=== PATIENT | male | born 1950 | race Caucasian/White ===

== ENCOUNTER 2016-11-11 07:25 | Day surgery (SDC) | payer MEDICARE ==
[~2016-11-11] VITALS: Ht 182.9 cm; Wt 72.6 kg
--- NOTE | 2016-11-11 09:28 | NUR ---
11/11/16 0928 Opal Plascencia 0982-PATIENT ARRIVED TO PACU ON 5L NC O2 SAT 99% PATIENT NONAROUSABLE ABDOMEN SOFT. SR.
--- NOTE | 2016-12-01 10:36 | OR ---
[facility] [address], [place] [address] Signed DATE OF SERVICE: 11/11/2016 PREOPERATIVE DIAGNOSIS: History of multiple polyps, 2010. Rectal bleeding, May and June 2016. Alcohol dependency. POSTOPERATIVE DIAGNOSES: Diverticulosis of sigmoid and left colon. Multiple polyps (total of 6), including flat polyps of cecum, complex polyps of right colon and hepatic flexure. PROCEDURE: Total colonoscopy with hot snare polypectomy x3, with mucosal lift technique, including Endomark tattoo dye. Cold morcellation polypectomy x3 (prolonged, complicated, difficult). ANESTHESIA: Propofol infusion, Agnieszka Sevilla CRNA. INDICATION: This is a 66-year-old, white man, who is a patient of Dr. Muro and is a chronic alcoholic. He was seen by me in 2010, at which time he had 7 hyperplastic polyps excised and 1 adenoma. He has a family history of colon cancer in his father. He did not follow up in planned time interval for colonoscopy, but is here at this point having episodes of rectal bleeding back in May, which have largely resolved. He is admitted to undergo colonoscopy for surveillance as well as for his rectal bleeding, mindful of his underlying alcoholism. The risks of bleeding, infection, and perforation related to colonoscopy was reviewed in detail with him. He understands and wishes to proceed. FINDINGS: The prep was good. Complete colonoscopy was undertaken to the cecum. Within the cecum was a flat polyp that was excised to an excellent effect using mucosal lift technique and Endomark tattoo dye. Two smaller polyps were noted in the ascending colon, excised with cold morcellation relation technique. Another polyp of the ascending colon and hepatic flexure, which were along a fold required Endomark tattoo lift technique for excision as well. Another polyp, hypervascular but probably adenomatous was noted in the sigmoid, which was excised with similar technique. Procedure was prolonged, complicated, and difficult on the basis of number of polyps and mucosal lift technique required to safely excise them. DESCRIPTION OF PROCEDURE: The patient was brought to the endoscopy suite and placed in lateral decubitus position. He was given intravenous sedation to the point of deep sedation by the buckle sewer using propofol infusion. Digital rectal examination was Electronically Signed By: ROHINI BUTLER MD 12/01/16 1036 PATIENT NAME: CONCETTA BETH OPERATIVE REPORT DATE OF : 50 PHYSICIAN: ROHINI BUTLER MD REPORT #: [id number] REPORT IS CONFIDENTIAL AND NOT TO BE RELEASED WITHOUT AUTHORIZATION [facility] [address], [place] [address] Signed normal. An Olympus video colonoscope was passed in the rectum and manipulated throughout the colon. Numerous diverticula were seen in the sigmoid and left colon. Scope was advanced to the cecum, where a subtle flat polyp was noted. Irrigation and narrow band imaging better defined the polyp. It would be considered a "flat" polyp. Using an Endomark tattoo technique with mucosal lift and a sclerotherapy needle, the lesion was elevated from the mucosa of the cecum. Several passes with the hot snare were used to excise it fully. Photographs were taken. Bits and pieces of the polyp were passed for pathology. The scope was withdrawn, and another mid ascending colon polyp not completely flat, but definitely elongated of an unusual configuration was noted. This was excised in a similar technique. This lesion was too large to excise and pull through the scope, with morcellation technique and was left in situ. The scope was withdrawn to the hepatic flexure, where another similar polyp was noted. It was similarly excised with mucosal lift technique . Both polyps were then placed in an EndoCatch (Fountain net) to withdraw them fully. The scope was then fully withdrawn and the polyp material offloaded. The scope was reinserted, and examination of the polypectomy site showed them to be hemostatic without sign of perforation. Two small polyps of the right colon were noted, and these were excised with cold morcellation technique. Further withdrawal of the scope was undertaken and another polyp was noted in the sigmoid . It was marked and excised with hot snare polypectomy technique as well. Retroflexed view in the rectum was normal. Scope was removed, and the patient was taken to the recovery room in good condition. CONCLUDING DIAGNOSIS: Multiple polyps, most of them probably adenomatous. PLAN: Repeat colonoscopy in 1 year, sooner if clinically indicated. He will return to the ongoing care of Dr. Muro in the meantime. MD ROSAURA Spears/Donna /[id number] Electronically Signed By: ROHINI BUTLER MD 12/01/16 1036 PATIENT NAME: CONCETTA BETH OPERATIVE REPORT DATE OF : 50 PHYSICIAN: ROHINI BUTLER MD REPORT #: [id number] REPORT IS CONFIDENTIAL AND NOT TO BE RELEASED WITHOUT AUTHORIZATION
== END 2016-11-11 10:00 | disposition home or self-care (01) ==
LOC: OPS 07:25 → DS 07:25 → OPS 08:30 → DS 13:00 → OPS 13:00
PROVIDERS: Surgery
PROC: 0DBH8ZX Excision of Cecum, Via Natural or Artificial Opening Endoscopic, Diagnostic (ICD-10-PCS; 2016-11-11)
PROC: 0DBF8ZX Excision of Right Large Intestine, Via Natural or Artificial Opening Endoscopic, Diagnostic (ICD-10-PCS; 2016-11-11)
PROC: 0DBN8ZX Excision of Sigmoid Colon, Via Natural or Artificial Opening Endoscopic, Diagnostic (ICD-10-PCS; 2016-11-11)
PROC: 3E0H8GC Introduction of Other Therapeutic Substance into Lower GI, Via Natural or Artificial Opening Endoscopic (ICD-10-PCS; 2016-11-11)
PROC: 0DBL8ZX Excision of Transverse Colon, Via Natural or Artificial Opening Endoscopic, Diagnostic (ICD-10-PCS; principal; 2016-11-11 08:30)
DX: D12.3 Benign neoplasm of transverse colon (principal); D12.0 Benign neoplasm of cecum; K63.5 Polyp of colon; K57.30 Diverticulosis of large intestine without perforation or abscess without bleeding; D12.5 Benign neoplasm of sigmoid colon; F10.20 Alcohol dependence, uncomplicated; F17.210 Nicotine dependence, cigarettes, uncomplicated; J44.9 Chronic obstructive pulmonary disease, unspecified; Z85.89 Personal history of malignant neoplasm of other organs and systems; K21.9 Gastro-esophageal reflux disease without esophagitis; Z98.890 Other specified postprocedural states
CPT/HCPCS: 00810; J2704; J7120

== ENCOUNTER 2017-11-14 06:00 | Day surgery (SDC) | payer MEDICARE ==
[~2017-11-14] VITALS: Ht 182.9 cm; Wt 72.6 kg
--- NOTE | 2017-11-14 08:38 | NUR ---
11/14/17 0838 Maxim Nuñez RESPONDS TO VOICE AT 0837. DENIES [place] OR PAIN. FALLS ASLEEP EASILY.
--- NOTE | 2017-11-14 18:23 | EKG ---
[facility] [address] [facility] [place] [address] Signed Normal sinus rhythm Normal ECG No previous ECGs available Confirmed by HARINI CARTER MD ([id number]) on 11/14/2017 6:22:57 PM Electronically Signed By: HARINI CARTER MD 11/14/17 1823 PATIENT NAME: CONCETTA BETH Electrocardiogram DATE OF : 50 PHYSICIAN: HARINI CARTER MD REPORT #: [id number] REPORT IS CONFIDENTIAL AND NOT TO BE RELEASED WITHOUT AUTHORIZATION
--- NOTE | 2017-11-15 09:34 | OR ---
[facility] [address] [place], [place] [address] Signed DATE OF OPERATION: 11/14/2017 SURGEON: Rohini Butler MD PREOPERATIVE DIAGNOSIS: History of multiple polyps in 2018. POSTOPERATIVE DIAGNOSES: 1. Polyps x8. 2. Sigmoid diverticulosis. PROCEDURE: Total colonoscopy to cecum with hot snare polypectomy x4 and cold morcellation polypectomy x4. ANESTHESIA: Intravenous sedation with propofol infusion. ANESTHESIOLOGIST: Santy Gabriel CRNA. INDICATION: This 67-year-old white man is a patient Dr. Muro and has chronic alcoholism in durable remission at this time. In October of 2017, he underwent colonoscopy, was found to have multiple polyps. They were adenomatous. He does have constipation from time to time, but no rectal bleeding. Although, he is in remission from significant alcoholism, he does admit to smoking cannabis on a routine basis. He was admitted at this time to undergo surveillance colonoscopy, understand the risks of bleeding, infection, perforation, and so on. FINDINGS: The prep was excellent. Complete colonoscopy was undertaken to the cecum. He had multiple polyps once again. One in particular was a flat polyp of the sigmoid, which was excised with mucosal lift technique. The other polyps were excised with combination of snare polypectomy or cold morcellation polypectomy technique. Numerous diverticula were seen in the sigmoid. All the polyps essentially were on the left side. None in the right or transverse. DESCRIPTION OF PROCEDURE: The patient was brought to the endoscopy suite and placed in lateral decubitus position, Electronically Signed By: ROHINI BUTLER MD 11/15/17 0934 PATIENT NAME: CONCETTA BETH OPERATIVE REPORT DATE OF : 50 REPORT #: [id number] PHYSICIAN: ROHINI BUTLER MD PCP: GEOFF MURO MD REPORT IS CONFIDENTIAL AND NOT TO BE RELEASED WITHOUT AUTHORIZATION [facility] [address] [place], [place] [address] Signed given intravenous sedation by the corporate relations director with propofol infusional technique. Digital rectal examination was normal. Olympus video colonoscope was passed in the rectum and manipulated into the sigmoid where a very subtle flat polyp was noted. Narrow band imaging was used to define the polyp. Mucosal lift technique was deemed optimal. Using Endomark tattoo dye, the center part of the flat polyp was infused lifting it from the underlying mucosa. Hot snare polypectomy technique was used to excise it fully. Only a portion could be retrieved for some reason, but and passed for pathology. The scope was then passed further. A numerous diverticula were seen as well as several polyps, some of them about the size of 0.5 cm or so. They were excised combination of hot snare polypectomy technique and cold morcellation technique. The scope was advanced from that point to the cecum where the ileocecal valve and appendiceal orifice were identified. The scope was then withdrawn. Careful inspection of the ascending colon, transverse, did not show signs of polyps. The splenic flexure was normal. Upon withdrawal, polyps were once again seen. Polyps were excised throughout the left colon and marked appropriately for the pathology slip. A total of 8 polyps were excised for them with hot snare polypectomy technique and 4 with cold morcellation technique. Retroflexed view of the rectum had shown about a cm polyp, which was excised with hot snare polypectomy technique as well. Scope was removed and the patient was taken to recovery in good condition. CONCLUDING DIAGNOSIS: Multiple polyps once again. PLAN: Recommend repeat colonoscopy in one year or sooner if clinically indicated. MD ROSAURA Spears/MODL /[id number] cc: Geoff Muro MD Electronically Signed By: ROHINI BUTLER MD 11/15/17 0934 PATIENT NAME: CONCETTA BETH OPERATIVE REPORT DATE OF : 50 REPORT #: [id number] PHYSICIAN: ROHINI BUTLER MD PCP: GEOFF MURO MD REPORT IS CONFIDENTIAL AND NOT TO BE RELEASED WITHOUT AUTHORIZATION [address] [address] Signed Copies: GEOFF MURO MD ~ Electronically Signed By: ROHINI BUTLER MD 11/15/17 0934 PATIENT NAME: CONCETTA BETH OPERATIVE REPORT DATE OF : 50 REPORT #: [id number] PHYSICIAN: ROHINI BUTLER MD PCP: GEOFF MURO MD REPORT IS CONFIDENTIAL AND NOT TO BE RELEASED WITHOUT AUTHORIZATION
== END 2017-11-14 09:06 | disposition home or self-care (01) ==
LOC: OPS 06:00 → DS 06:00 → OPS 06:45 → DS 06:45 → OPS 09:06
PROVIDERS: Surgery
PROC: 0DBE8ZZ Excision of Large Intestine, Via Natural or Artificial Opening Endoscopic (ICD-10-PCS; 2017-11-14)
PROC: 0DBP8ZZ Excision of Rectum, Via Natural or Artificial Opening Endoscopic (ICD-10-PCS; 2017-11-14)
PROC: 0DBN8ZZ Excision of Sigmoid Colon, Via Natural or Artificial Opening Endoscopic (ICD-10-PCS; principal; 2017-11-14 06:45)
DX: Z12.11 Encounter for screening for malignant neoplasm of colon (principal); D12.8 Benign neoplasm of rectum; K63.5 Polyp of colon; K57.30 Diverticulosis of large intestine without perforation or abscess without bleeding; F17.210 Nicotine dependence, cigarettes, uncomplicated; J44.9 Chronic obstructive pulmonary disease, unspecified; K21.9 Gastro-esophageal reflux disease without esophagitis; L98.9 Disorder of the skin and subcutaneous tissue, unspecified; F10.21 Alcohol dependence, in remission; Z86.010 Personal history of colon polyps; Z80.0 Family history of malignant neoplasm of digestive organs; Z85.828 Personal history of other malignant neoplasm of skin
CPT/HCPCS: 93005; 93010; J2704; J7120

== ENCOUNTER 2018-11-05 09:50 | Day surgery (SDC) | payer MEDICARE ==
[~2018-11-05] VITALS: Ht 182.9 cm; Wt 71.7 kg
--- NOTE | 2018-11-05 14:16 | NUR ---
11/05/18 1416 Haylee Rojas 1414-PT TO PACU ASLEEP. BREATHING EASY AND UNLABORED. SP02 94% ON RA.
--- NOTE | 2018-11-06 15:35 | OR ---
[facility] [address] [place], [place] [address] Signed DATE OF OPERATION: 11/05/2018 SURGEON: Rohini Butler MD PREOPERATIVE DIAGNOSIS: History of 8 polyps in 2018 (serrated adenoma of rectum and adenomatous polyps elsewhere). POSTOPERATIVE DIAGNOSES: 1. Extensive diverticulosis. 2. Polyps x3 (cecum, right colon, and sigmoid). PROCEDURES PERFORMED: Total colonoscopy to cecum with hot snare polypectomy x1, cold snare polypectomy x1, and cold morcellation polypectomy x1. ANESTHESIA: Propofol infusion. ANESTHESIOLOGIST: Reagan Eddy CRNA. INDICATION: This 68-year-old white man is markedly debilitated and is a patient Dr. Muro. He underwent colonoscopy in November of 2017 showing two of eight polyps to be adenomas, the others hyperplastic, the lowest in the rectum was a serrated adenoma. He has recently had some bright red rectal bleeding. This is occasionally associated with pain. The patient is no longer drinking alcohol, which is clearly of a benefit to him, though he does smoke one pack of cigarettes a day. He is admitted at this time to undergo colonoscopy. He understands the risk of bleeding, infection, and perforation. FINDINGS: The prep was excellent. Complete colonoscopy was undertaken of the cecum without question. He had numerous and extensive diverticulosis of the sigmoid and left colon, but it did not prove too much of a problem of passage for complete colonoscopy. He had three polyps in total; one small, one in the cecum, another in the right colon, and another in the sigmoid, all were excised completely. DESCRIPTION OF PROCEDURE: Electronically Signed By: ROHINI BUTLER MD 11/06/18 1535 PATIENT NAME: CONCETTA BETH OPERATIVE REPORT DATE OF : 50 REPORT #: [id number] PHYSICIAN: ROHINI BUTLER MD PCP: GEOFF MURO MD REPORT IS CONFIDENTIAL AND NOT TO BE RELEASED WITHOUT AUTHORIZATION [facility] [address] [place], [place] [address] Signed The patient was brought to the endoscopy suite and placed in lateral decubitus position, given intravenous sedation to the point of slurred speech and nystagmus. Digital rectal examination was normal. Propofol infusional sedation was given by the shade cutter. The Olympus video colonoscope was passed into the rectum after normal rectal examination was performed and manipulated throughout the colon noting extensive and numerous large and small diverticula. The scope was ultimately passed to the cecum. In the cecum was a small polyp, this was excised with cold morcellation technique. The scope was further withdrawn and in the distal ascending colon a more sessile, somewhat larger polyp was noted, this was excised with cold snare polypectomy technique without adverse bleeding. The specimen was passed for pathology. Scope was further withdrawn and remaining colon was normal until the sigmoid where an another polyp was noted, this was slightly pedunculated and larger and likely adenomatous. This was excised with hot snare polypectomy technique. The specimen was recovered in later. The remaining colon was normal. Retroflexed view of the rectum showed very large internal hemorrhoids, most likely accounting for recent bleeding. He was taken to recovery room in good condition. CONCLUDING DIAGNOSES: 1. Polyps x3. 2. Extensive diverticulosis. 3. Internal hemorrhoidal changes. PLAN: Recommend high-fiber diet. Repeat colonoscopy in 3 years, sooner if clinically indicated. If he has ongoing rectal bleeding, hemorrhoidal banding could be undertaken. MD ROSAURA Spears/MODL /[id number] cc: Geoff Muro MD Copies: GEOFF MURO MD Electronically Signed By: ROHINI BUTLER MD 11/06/18 1535 PATIENT NAME: CONCETTA BETH WILLIE OPERATIVE REPORT DATE OF : 50 REPORT #: [id number] PHYSICIAN: ROHINI BUTLER MD PCP: GEOFF MURO MD REPORT IS CONFIDENTIAL AND NOT TO BE RELEASED WITHOUT AUTHORIZATION [address] [address] Signed ~ Electronically Signed By: ROHINI BUTLER MD 11/06/18 1535 PATIENT NAME: CONCETTA BETH OPERATIVE REPORT DATE OF : 50 REPORT #: [id number] PHYSICIAN: ROHINI BUTLER MD PCP: GEOFF MURO MD REPORT IS CONFIDENTIAL AND NOT TO BE RELEASED WITHOUT AUTHORIZATION
== END 2018-11-05 14:51 | disposition home or self-care (01) ==
LOC: DS 09:50 → OPS 09:50 → DS 11:45 → OPS 14:51
PROVIDERS: Surgery
PROC: 0DBN8ZZ Excision of Sigmoid Colon, Via Natural or Artificial Opening Endoscopic (ICD-10-PCS; 2018-11-05)
PROC: 0DBH8ZZ Excision of Cecum, Via Natural or Artificial Opening Endoscopic (ICD-10-PCS; 2018-11-05)
PROC: 0DBK8ZZ Excision of Ascending Colon, Via Natural or Artificial Opening Endoscopic (ICD-10-PCS; principal; 2018-11-05 11:45)
DX: D12.0 Benign neoplasm of cecum (principal); K63.5 Polyp of colon; K64.8 Other hemorrhoids; K57.30 Diverticulosis of large intestine without perforation or abscess without bleeding; J44.9 Chronic obstructive pulmonary disease, unspecified; K21.9 Gastro-esophageal reflux disease without esophagitis; F32.9 Major depressive disorder, single episode, unspecified; F17.210 Nicotine dependence, cigarettes, uncomplicated; Z86.010 Personal history of colon polyps; Z98.890 Other specified postprocedural states
CPT/HCPCS: J2704; J7120

== ENCOUNTER 2021-03-27 09:54 | Day surgery (SDC) | payer MEDICARE ==
[~2021-03-27] VITALS: Ht 182.9 cm; Wt 70.5 kg
--- NOTE | 2021-03-27 12:13 | NUR ---
03/27/21 1213 Citlalli Ibarra 1206 PATIENT ARRIVES TO PACU RESTING WITH EYES CLOSED. OPENS EYES WITH VERBAL STIMULI. RESP EVEN AND UNLABORED, NC AT 4 LITERS. 1210 PATIENT AWAKE OFF/ON, BUT DROWSY. DENIES PAIN OR NAUSEA. RESP EVEN AND UNLABORED, NC AT 2 LITERS.
--- NOTE | 2021-03-28 09:25 | OR ---
[facility] [place] [facility] [address], [place] [address] Signed DATE OF OPERATION: 03/27/2021 SURGEON: Rohini Butler MD PREOPERATIVE DIAGNOSES: 1. Episodic rectal bleeding. 2. History of polyps in 2019, tubular adenoma and hyperplastic polyps. 3. Chronic urinary retention with indwelling Aparicio catheter and multiple medical problems. POSTOPERATIVE DIAGNOSES: 1. Extensive diverticular changes. 2. Small hyperplastic-appearing polyp of rectum. 3. Internal hemorrhoidal changes. PROCEDURES: Total colonoscopy to cecum with cold morcellation, excision of rectal polyp. ANESTHESIA: Intravenous sedation, propofol infusion, Pacheco Martin CRNA INDICATIONS: This 70-year-old white man is rather debilitated. He is a patient Dr. Arti Sandra and known to me from the past having undergone colonoscopy in 2019, finding two hyperplastic polyps and an adenoma. In the past several months, he has developed chronic urinary retention related to prostate issues and was said to have drained nearly 4.5 L at one time. The indwelling Aparicio catheter is in position at this time under the direction of Dr. Stella Mo, the urologist. He has recently had some rectal bleeding, which was generally bright red. On that basis, colonoscopy has been recommended. The risks of bleeding, infection, and perforation related to colonoscopy was reviewed with him. He understands and wished to proceed. FINDINGS: The prep was quite good. Complete colonoscopy was undertaken to the cecum without question. Had numerous diverticula both small and large of the sigmoid and left colon. Scattered diverticula more proximally. He had only one small tiny polyp of the rectum, which was probably hyperplastic, it was excised completely. He did have internal hemorrhoidal changes, but no sign of hemorrhoidal bleeding, no sign of fissure. There was no evidence of colitis. Electronically Signed By: ROHINI BUTLER MD 03/28/21 0925 PATIENT NAME: CONCETTA BETH OPERATIVE REPORT DATE OF : 50 REPORT #: [id number] PHYSICIAN: ROHINI BUTLER MD PCP: ARTI SANDRA MD REPORT IS CONFIDENTIAL AND NOT TO BE RELEASED WITHOUT AUTHORIZATION [facility] [place] [facility] [address] [facility] [place], [place] [address] Signed DESCRIPTION OF PROCEDURE: The patient was brought to the endoscopy suite and placed in lateral decubitus position, given intravenous sedation with propofol infusional technique by the procurement officer given his advanced ASA classification of III. After satisfactory sedation, digital rectal examination was undertaken, showing marginal sphincter tone and some hemorrhoidal changes. An Olympus video colonoscope was passed into the rectum and manipulated throughout the colon noting numerous diverticula of the sigmoid and left colon, some of them very large. The scope was ultimately advanced to the cecum. The ileocecal valve and appendiceal orifice were normal. The scope was withdrawn from that point. Careful examination upon withdrawal of scope showed no sign of abnormality until the left colon, where extensive diverticular changes were noted including the sigmoid. The scope was withdrawn to the rectum, where a small hyperplastic polyp was noted, this was excised with cold morcellation technique. Retroflexed view was undertaken confirming redundancy of the hemorrhoidal plexus. The scope was straightened, withdrawn, and removed, and the patient was taken to the recovery room in good condition. CONCLUDING DIAGNOSIS: Rectal bleeding may well have been related to hemorrhoidal disease. No evidence of bleeding from diverticular disease and small polyp would not be contributory to a bleeding issue. PLAN: Recommend a fiber supplement, Citrucel, or Metamucil in a powder form on a daily basis. He will return to the ongoing care of Dr. Sandra. MD ROSAURA Spears/CHRISTINL /[id number] cc: Arti Sandra MD Copies: ARTI SANDRA DMD Electronically Signed By: ROHINI BUTLER MD 03/28/21 0925 PATIENT NAME: CONCETTA BETH OPERATIVE REPORT DATE OF : 50 REPORT #: [id number] PHYSICIAN: ROHINI BUTLER MD PCP: ARTI SANDRA MD REPORT IS CONFIDENTIAL AND NOT TO BE RELEASED WITHOUT AUTHORIZATION [facility] [place] [facility] [address] [place] [address] [place] [address] Signed ~ Electronically Signed By: ROHINI BUTLER MD 03/28/21 0925 PATIENT NAME: CONCETTA BETH OPERATIVE REPORT DATE OF : 50 REPORT #: [id number] PHYSICIAN: ROHINI BUTLER MD PCP: ARTI SANDRA MD REPORT IS CONFIDENTIAL AND NOT TO BE RELEASED WITHOUT AUTHORIZATION
== END 2021-03-27 12:45 | disposition home or self-care (01) ==
LOC: DS 09:54 → OPS 09:54
PROVIDERS: ATTEND Surgery
PROC: 0DBP8ZX Excision of Rectum, Via Natural or Artificial Opening Endoscopic, Diagnostic (ICD-10-PCS; principal; 2021-03-27 11:00)
DX: D12.8 Benign neoplasm of rectum (principal); K62.5 Hemorrhage of anus and rectum; J44.9 Chronic obstructive pulmonary disease, unspecified; K21.9 Gastro-esophageal reflux disease without esophagitis; N32.0 Bladder-neck obstruction; K40.90 Unilateral inguinal hernia, without obstruction or gangrene, not specified as recurrent; K64.8 Other hemorrhoids; K57.30 Diverticulosis of large intestine without perforation or abscess without bleeding; Z87.891 Personal history of nicotine dependence
CPT/HCPCS: 88305; J2001; J2704; J7121

== ENCOUNTER 2021-04-24 06:10 | Day surgery (SDC) | payer MEDICARE ==
[~2021-04-24] VITALS: Ht 182.9 cm; Wt 70.3 kg
[2021-04-24] MEDS ORDERED: METAMUCIL0.4 GM PO (06:39)
--- NOTE | 2021-04-24 08:46 | NUR ---
PT ALERT, ORIENTED AND WILL HAVE A COUSIN PICKUP FOLLOWING DC. PT EXPRESSED GREAT CONFIDENCE IN DR BUTLER.HE HAS CARED FOR PT SEVERAL TIMES. PT FEELS HE IS INFORMED, GAVE ENCOURAGEMENT, PT REQUESTED PRAYER. WILL FOLLOW NEEDED
--- NOTE | 2021-04-24 09:17 | NUR ---
04/24/21 0917 Sheets,Juju 0901 PT ARRIVED WITH ORAL AIRWAY IN PLACE AND 6L VIA MASK. RESP EVEN AND UNLABORED JAW THURST NEEDED OFF AND ON TO MAINTAIN AIRWAY. VSS. 0907 PT WAKES AND REACHING FOR HIS FACE. PT EASILY FALLS BACK TO SLEEP AND SNORING NOTED. 0911 PT WAKES AND COUGHING NOTED, RN BRACING SURGICAL SITE AND ENCOURAGES COUGHING. PT REORIENTED TO PACU. O2 REMOVED. 0914 APNEA NOTED AND RN WAKES PT AND SIPPING WATER PER REQUEST. PT ABLE TO BRACE ABD WHILE COUGHING OFF AND ON. PT CONTINUES TO DENY PAIN
[2021-04-24] MEDS ORDERED: OXYCODON-ACETA1 EAC2 PO (09:28)
[2021-04-24] MEDS ORDERED: IBUPROFEN600 MG PO (09:28)
[2021-04-24] MEDS ORDERED: ACETAMINOPHEN500 MG PO (09:29)
--- NOTE | 2021-04-24 10:55 | NUR ---
REVIEWED DISCHARGE INSTRUCTIONS WITH PT. RX GIVEN WITH COPY OF DISCHARGE INSTRUCTIONS. STEADY ON FEET WITH ONE PERSON STAND BY ASSIST. PT DRESSES SELF WITHOUT DIFFICULTY.
--- NOTE | 2021-04-24 11:17 | NUR ---
PT EATING CHEESE WHILE WAITING TO BE DISCHARGED. CONTINUES TO RATE PAIN 1-2/10. DISCUSSED LOCAL ANESTHETIC THAT WAS USED WITH PT AND ENCOURAGED HIM TO FILL HIS RX AT THE PHARMACY ON THE WAY HOME.
--- NOTE | 2021-04-25 10:08 | OR ---
[facility] [address], [place] [address] Signed DATE OF OPERATION: 04/24/2021 SURGEON: Rohini Butler MD PREOPERATIVE DIAGNOSIS: Right inguinal hernia. POSTOPERATIVE DIAGNOSIS: 1. Right direct inguinal hernia. 2. Incidental finding of fullness of left divya-arytenoid tissue of hypopharynx. PROCEDURES: 1. Repair of right direct inguinal hernia. 2. Implantation of Prolene mesh underlay technique. ANESTHESIA: General endotracheal. Reagan Eddy CRNA and local 20 mL of 0.25% Marcaine with epinephrine. INDICATION: This 71-year-old white man is a patient of Dr. Arti Sandra and is found to have a reducible right inguinal hernia. He has undergone colonoscopy already and is now admitted to undergo right inguinal hernia repair. He does have an indwelling Aparicio catheter related to an episode of bilateral outlet obstruction in which 4.5 L of urine was drained still with bladder dysfunction. He has already undergone left inguinal hernia repair in the past which remains intact. The patient has somewhat tenuous health overall, but is certainly a good candidate for right inguinal hernia repair particularly he has had discomfort with it. He understands the risks of bleeding, infection, recurrent hernia, and other unforeseen complications related to repair and wished to proceed with it. FINDINGS: Indirect hernia was noted. There was no indirect direct sac. Implantation of Prolene mesh in an underlay technique was accomplished providing good repair of the floor. Cord structures were preserved. An ilioinguinal and iliohypogastric nerve branch were identified and well preserved. There were no complications. DESCRIPTION OF PROCEDURE: The patient was brought to the operating room, given a general endotracheal anesthetic. Noted by the huc ob was a small area of protruding soft tissue to the left of the Electronically Signed By: ROHINI BUTLER MD 04/25/21 1008 PATIENT NAME: CONCETTA BETH OPERATIVE REPORT DATE OF : 50 REPORT #: [id number] PHYSICIAN: ROHINI BUTLER MD PCP: ARTI SANDRA MD REPORT IS CONFIDENTIAL AND NOT TO BE RELEASED WITHOUT AUTHORIZATION [facility] [address], [place] [address] Signed arytenoid process. I examined this myself. It was not ulcerated nor purely white and particularly malignant in appearance, but certainly different than usual. Referral to an ENT is anticipated in due course. The lower abdomen was clipped and prepared with a chlorhexidine solution and draped sterilely. Preoperative antibiotic Ancef was given and sequential compression device stockings were used and heparin subcutaneously administered. After sterile preparation, a small incision was made cephalad to the pubic tubercle on the right. Dissection was carried through the subcutaneous tissue with electrocautery. The external oblique was incised along its fibers revealing the underlying cord. An ilioinguinal iliohypogastric nerve branch was identified. The ilioinguinal nerve was dissected free from the cremasteric muscle fibers and retracted around the external oblique out of harm's way. Using careful blunt dissection and electrocautery, the cord was mobilized from the floor and encircled with a Shacklefords drain. Dissection medial to the cord revealed the hernia defect was a direct type abnormality. There was no indirect sac. The tendon of the transversus abdominis and lateral aspect of the cord structures were freed with blunt and electrocautery dissection better defining the hernia problem more medially. The attenuated fibers of the fascia of the transversalis were incised with electrocautery and bluntly . The segment of Prolene mesh was secured in an underlay technique with interrupted 2-0 Prolene sutures. A defect was cut in the graft to accommodate the cord. As the defect was a bit larger than needed, it was secured with interrupted Prolene suture as well. Irrigation was undertaken and careful examination for any bleeding was undertaken. A 20 mL of 0.25% Marcaine with epinephrine was injected locally. The cord was replaced into the canal as was the ilioinguinal nerve branch and the external oblique reapproximated with running 2-0 Vicryl suture. Zahida layer was reapproximated with interrupted 2-0 Vicryl and the skin was closed with running subcuticular 3-0 Vicryl. Steri-Strips were applied as was an Acticoat dressing. The patient was ultimately extubated without problem, taken to the recovery room in good condition having suffered no complication. Sponge, needle, and instrument counts were reported as correct x3. Rohini Butler MD /MODL /[id number] Electronically Signed By: ROHINI BUTLER MD 04/25/21 1008 PATIENT NAME: CONCETTA BETH OPERATIVE REPORT DATE OF : 50 REPORT #: [id number] PHYSICIAN: ROHINI BUTLER MD PCP: ARTI SANDRA MD REPORT IS CONFIDENTIAL AND NOT TO BE RELEASED WITHOUT AUTHORIZATION [facility] [address] [place] [address] Signed cc: MD Arti Escobedo MD Copies: ALEXI AGUSTIN MD, ROBERT D DMD ~ Electronically Signed By: ROHINI BUTLER MD 04/25/21 1008 PATIENT NAME: CONCETTA BETH OPERATIVE REPORT DATE OF : 50 REPORT #: [id number] PHYSICIAN: ROHINI BUTLER MD PCP: ARTI SANDRA MD REPORT IS CONFIDENTIAL AND NOT TO BE RELEASED WITHOUT AUTHORIZATION
== END 2021-04-24 11:07 | disposition home or self-care (01) ==
LOC: DS 06:10
PROVIDERS: ATTEND Surgery
PROC: 0YU50JZ Supplement Right Inguinal Region with Synthetic Substitute, Open Approach (ICD-10-PCS; principal; 2021-04-24 06:45)
DX: K40.90 Unilateral inguinal hernia, without obstruction or gangrene, not specified as recurrent (principal); K62.5 Hemorrhage of anus and rectum; N32.0 Bladder-neck obstruction; I25.10 Atherosclerotic heart disease of native coronary artery without angina pectoris; K21.9 Gastro-esophageal reflux disease without esophagitis; J44.9 Chronic obstructive pulmonary disease, unspecified; Z20.822 Contact with and (suspected) exposure to COVID-19
CPT/HCPCS: C1781; J0690; J1100; J1644; J1885; J2001; J2250; J2405; J2704; J3010; J7121

== ENCOUNTER 2023-09-26 15:59 | Observation (INO) | payer MEDICARE ==
[~2023-09-26] VITALS: Ht 185.4 cm; Wt 72.9 kg
[~2023-09-26 15:59] MED LIST: ACETAMINOPHEN500 MG PO; IBUPROFEN600 MG PO; METAMUCIL0.4 GM PO; OXYCODON-ACETA1 EAC2 PO
[2023-09-26] MEDS ORDERED: METOPROLOL SUCC25 MG PO (16:21)
[2023-09-26] MEDS ORDERED: ondansetron HCL 4 MG/2 ML VIAL IV ONE (17:00)
[2023-09-26] MEDS ORDERED: SODIUM CHLORIDE 0.9% 1,000 ML IV ONE ×2 (17:00→18:15)
[2023-09-26 17:10] LABS: HEMATOCRIT 45.7 % (35.0-50.0); HEMOGLOBIN 15.4 g/dL (12.0-18.0); MCH 30.6 (27-36); MCHC 33.7 g/dl (30-36); MCV 90.9 fl (81-99); PLATELET COUNT 305 K/uL (140-440); RBC 5.03 M/ul (4.3-5.7); RDW 14.6 (10.5-15.0)
[2023-09-26 17:30] LABS: BILIRUBIN, URINE NEGATIVE (negative); BLOOD/HGB, URINE MODERATE (Negative); KETONE, URINE SMALL (Negative); LEUK ESTERASE, URINE NEGATIVE (negative); NITRITE, URINE NEGATIVE (negative)
[2023-09-26 17:32] LABS: BANDS, MANUAL DIFF 1; EOSINOPHILS, MANUAL DIFF 2; LYMPHOCYTES, MANUAL DIFF 7; MONOCYTES, MANUAL DIFF 13; NEUTROPHILS, MANUAL DIFF 77
[2023-09-26 17:36] LABS: CRYSTALS, URINE NONE SEEN (0-1+)
[2023-09-26 17:37] LABS: BACTERIA, URINE RARE /hpf (negative); CASTS, URINE NONE SEEN \\lpf; COLLECTION TYPE, URINE CLEAN CATCH; REFLEX CULTURE, URINE No (No)
[2023-09-26 17:38] LABS: ALBUMIN 3.2 g/dL (3.4-5.0); ALBUMIN/GLOBULIN RATIO 0.7 (1.1-2.4); ANION GAP 18.7 (7-21); BILIRUBIN, TOTAL 0.8 ng/dL (0.2-1.0); BUN/CREATININE RATIO 14.89 (6.0-28.6); CALCIUM 8.9 mg/dL (8.5-10.1); CREATININE, SERUM 0.94 mg/dL (0.70-1.30); POTASSIUM 3.7 mmol/L (3.5-5.1); PROTEIN, TOTAL 7.8 g/dL (6.4-8.2)
[2023-09-26] MEDS ORDERED: METOPROLOL TARTRATE 5 MG/5 ML VIAL IV SCH (18:15)
[2023-09-26] MEDS ORDERED: ACETAMINOPHEN 500 MG TAB PO ONE (18:30)
[2023-09-26] MEDS ORDERED: CEFEPIME HCL/D5W 2 GM/100 ML PIGGYBACK IV ONE (18:45)
[2023-09-26 18:50] LABS: LACTIC ACID, BLOOD 0.8 mmol/L (0.4-2.0)
[2023-09-26] MEDS ORDERED: SODIUM CHLORIDE 0.9% 1,000 ML IV SCH (20:45)
[2023-09-26] MEDS ORDERED: ondansetron HCL 4 MG/2 ML VIAL IV PRN (20:45)
[2023-09-26] MEDS ORDERED: ACETAMINOPHEN 325 MG TAB PO PRN (20:45)
[2023-09-26] MEDS ORDERED: LIDOCAINE 2% VISCOUS 6 ML SYR TOP ONE (20:45)
[2023-09-26 20:53] VITALS: BP 154/77
[2023-09-26] MEDS ORDERED: CEFEPIME HCL/D5W 1 GM/100 ML PIGGYBACK IV SCH (21:00)
[2023-09-26 22:55] VITALS: BP 154/77
[2023-09-27] VITALS (8 sets, daily range): BP systolic 133–153; BP diastolic 65–88
[2023-09-27 05:32] LABS: BASOPHILS 0.2 % (0-2); HEMATOCRIT 40.7 % (35.0-50.0); HEMOGLOBIN 13.3 g/dL (12.0-18.0); MCH 29.9 (27-36); MCHC 32.7 g/dl (30-36); MCV 91.5 fl (81-99); NEUTROPHILS 82.8 % (39-80); PLATELET COUNT 272 K/uL (140-440); RBC 4.45 M/ul (4.3-5.7); RDW 14.8 (10.5-15.0)
[2023-09-27 05:34] LABS: ANION GAP 17.3 (7-21); BUN/CREATININE RATIO 12.22 (6.0-28.6); CALCIUM 7.4 mg/dL (8.5-10.1); CREATININE, SERUM 0.9 mg/dL (0.70-1.30); MAGNESIUM 1.5 mg/dL (1.8-2.4); POTASSIUM 3.3 mmol/L (3.5-5.1)
[2023-09-27] MEDS ORDERED: POTASSIUM CHLORIDE 40 MEQ,LIDOCAINE HCL 1% 40 MG in DEXTROSE 5% 500 ML IV ONE (08:00)
[2023-09-27] MEDS ORDERED: MAGNESIUM SULFATE 2 GM/50 ML BAG IV ONE (08:00)
[2023-09-27] MEDS ORDERED: CEFEPIME HCL/D5W 1 GM/100 ML PIGGYBACK IV SCH ×2 (08:00→09:00)
[2023-09-27] MEDS ORDERED: METOPROLOL SUCCINATE 25 MG TABCR PO SCH (09:00)
[2023-09-27] MEDS ORDERED: PANTOPRAZOLE SODIUM 40 MG TABEC PO SCH (09:00)
[2023-09-27] MEDS ORDERED: AMOXICILLIN/CLAVULANATE K 875 MG TAB PO SCH (09:30)
[2023-09-27] MEDS ORDERED: PHARMACY RENAL DOSE ADJUSTMENT 1 DOSE MISC PO SCH (12:00)
[2023-09-27 12:14] LABS: ANION GAP 13.9 (7-21); BUN/CREATININE RATIO 10.84 (6.0-28.6); CALCIUM 7.3 mg/dL (8.5-10.1); CREATININE, SERUM 0.83 mg/dL (0.70-1.30); MAGNESIUM 2.1 mg/dL (1.8-2.4); POTASSIUM 3.9 mmol/L (3.5-5.1)
[2023-09-27] MEDS ORDERED: metroNIDAZOLE/SODIUM CHLORIDE 100 ML IV ONE (16:04)
[2023-09-27] MEDS ORDERED: METOPROLOL SUCCINATE 25 MG TABCR PO ONE (20:45)
[2023-09-28 05:30] VITALS: BP 128/69
[2023-09-28 05:43] VITALS: BP 128/69
[2023-09-28 08:00] VITALS: BP 124/71
[2023-09-28] MEDS ORDERED: METOPROLOL SUCCINATE 50 MG TABCR PO SCH (09:00)
[2023-09-28] MEDS ORDERED: AMOX TR-K CLV1 EAC1 PO (09:09)
[2023-09-28] MEDS ORDERED: METOPROLOL SUCC50 MG PO ×2 (09:10→09:13)
[2023-09-28] MEDS ORDERED: METRONIDAZOLE500 MG PO (09:11)
[2023-09-28 09:19] VITALS: BP 161/79
--- NOTE | 2023-09-28 12:51 | EKG ---
[facility] [address] [facility] [place] [facility] [place] [address] \T\ T wave abnormality, consider inferior ischemia Abnormal ECG When compared with ECG of 14-NOV-2017 07:14, Vent. rate has increased BY [address] now depressed in Inferior leads Non-specific change in ST segment in Anterior leads T wave inversion now evident in Inferior leads Confirmed by DORIS HENRIQUEZ MD ([id number]) on 09/28/2023 12:51:53 PM Electronically Signed By: DORIS HENRIQUEZ 09/28/23 1251 PATIENT NAME: CONCETTA BETH WILLIE Electrocardiogram DATE OF : 50 PHYSICIAN: DORIS HENRIQUEZ REPORT #: [id number] REPORT IS CONFIDENTIAL AND NOT TO BE RELEASED WITHOUT AUTHORIZATION
[2023-09-29 12:15] LABS: C. DIFF TOXIN B GENE TCDB,PCR Detected (())
== END 2023-09-28 11:00 | disposition home or self-care (01) ==
LOC: ED 15:59 → CCU 16:00
PROVIDERS: Emergency Medicine; ADMIT Internal Medicine; ATTEND Internal Medicine
DX: I47.10 Supraventricular tachycardia, unspecified (principal); J18.9 Pneumonia, unspecified organism; R19.7 Diarrhea, unspecified; E87.1 Hypo-osmolality and hyponatremia; F17.200 Nicotine dependence, unspecified, uncomplicated
CPT/HCPCS: 36415; 51702; 74177; 80048; 80053; 81001; 83605; 83690; 83735; 85025; 87040; 87493; 96361; 96365; 96366; 96367; 96368; 96375; 96376; 99285-25; A9270; G0378; J0692; J2405; J3475; J3480; J3490; J7030; J7060; Q9967

== ENCOUNTER 2023-10-12 09:42 | Inpatient (IN) | payer MEDICARE ==
[~2023-10-12] VITALS: Ht 185.4 cm; Wt 69.3 kg
[~2023-10-12 09:42] MED LIST changes: +AMOX TR-K CLV1 EAC1 PO; +METOPROLOL SUCC25 MG PO; +METOPROLOL SUCC50 MG PO; +METRONIDAZOLE500 MG PO
--- OUTSIDE RECORDS SUMMARY | 2023-10-12 09:50 | XMS ---
PreManage Notification: CONCETTA BETH Security Slurry Man Events No recent Security Events currently on file CRITERIA MET - [facility] - 2 Visits in 30 Days CARE PROVIDERS There are no care providers on record at this time. Pedro has no Care Guidelines for this patient. [facility] V[facility] (12 MO.) [facility] NOTE: Visits indicate total known visits. ED/C VISIT TRACKING (12 MO.) 10/12/2023 09:[facility] [place] [facility]: Emergency COMPLAINT: - BLOOD IN STOOL, RAPID HEART RATE 09/26/2023 15:59 [facility] [place] TYPE: Emergency COMPLAINT: - ABD PAIN INPATIENT VISIT TRACKING (12 MO.) 09/26/2023 16:00 [facility] [place] TYPE: Observation COMPLAINT: - SVT DIAGNOSES: - Diarrhea, unspecified - Hypo-osmolality and hyponatremia - Nicotine dependence, unspecified, uncomplicated - Pneumonia, unspecified organism - Supraventricular tachycardia, unspecified [email or web address]
[2023-10-12] MEDS ORDERED: SODIUM CHLORIDE 0.9% 1,000 ML IV ONE (10:15)
[2023-10-12 10:25] LABS: HEMATOCRIT 44.5 % (35.0-50.0); HEMOGLOBIN 14.5 g/dL (12.0-18.0); MCH 29.9 (27-36); MCHC 32.7 g/dl (30-36); MCV 91.6 fl (81-99); PLATELET COUNT 559 K/uL (140-440); RBC 4.86 M/ul (4.3-5.7); RDW 14.7 (10.5-15.0)
[2023-10-12 10:42] LABS: ALBUMIN 3.4 g/dL (3.4-5.0); ALBUMIN/GLOBULIN RATIO 0.76 (1.1-2.4); ANION GAP 18.7 (7-21); BILIRUBIN, TOTAL 1.5 ng/dL (0.2-1.0); BUN/CREATININE RATIO 17.2 (6.0-28.6); CALCIUM 9.1 mg/dL (8.5-10.1); CREATININE, SERUM 0.93 mg/dL (0.70-1.30); POTASSIUM 3.7 mmol/L (3.5-5.1); PROTEIN, TOTAL 7.9 g/dL (6.4-8.2)
[2023-10-12 10:45] LABS: LACTIC ACID, BLOOD 1.2 mmol/L (0.4-2.0); LYMPHOCYTES, MANUAL DIFF 14; MONOCYTES, MANUAL DIFF 10; NEUTROPHILS, MANUAL DIFF 76
[2023-10-12 10:55] LABS: BILIRUBIN, URINE NEGATIVE (negative); BLOOD/HGB, URINE TRACE-I (Negative); KETONE, URINE NEGATIVE (Negative); LEUK ESTERASE, URINE NEGATIVE (negative); NITRITE, URINE POSITIVE (negative)
[2023-10-12 11:04] LABS: BACTERIA, URINE 3+ /hpf (negative); CASTS, URINE NONE SEEN \\lpf; COLLECTION TYPE, URINE CLEAN CATCH; CRYSTALS, URINE NONE SEEN (0-1+); REFLEX CULTURE, URINE Yes (No)
[2023-10-12 11:05] LABS: ABO O
[2023-10-12 11:06] LABS: ANTIBODY SCREEN NEGATIVE; RH POSITIVE
[2023-10-12] MEDS ORDERED: LACTATED RINGER'S 1,000 ML IV ONE (11:30)
[2023-10-12 11:39] LABS: HCO3, BLOOD GAS 17.9 mmol/L (22-26); O2 SATURATION, BLOOD GAS 97.2 % (95.0-100.0); PCO2, BLOOD GAS 21.8 mmHg (35-45); PH, BLOOD GAS 7.52 (7.35-7.45); PO2, BLOOD GAS 82 mmHg (80-100); TOTAL CO2, BLOOD GAS 18.6
[2023-10-12 11:40] LABS: OXYGEN RECEIVED, BLOOD GAS RA
[2023-10-12] MEDS ORDERED: PANTOPRAZOLE SODIUM 40 MG TABEC PO SCH (13:29)
[2023-10-12] MEDS ORDERED: SODIUM CHLORIDE 0.9% 1,000 ML IV SCH (13:30)
[2023-10-12] MEDS ORDERED: ondansetron HCL 4 MG/2 ML VIAL IV PRN (13:30)
[2023-10-12] MEDS ORDERED: CEFTRIAXONE/SODIUM CHLORIDE 1 GM/100 ML PIGGYBACK IV SCH (13:38)
--- NOTE | 2023-10-12 13:45 | NUR ---
medications reconciled
[2023-10-12 14:39] VITALS: BP 156/95
[2023-10-12 18:30] VITALS: BP 155/64
--- NOTE | 2023-10-12 19:56 | NUR ---
REPORT RECEIVED FROM DAY SHIFT RN. PT LYING IN BED ALERT AND ORIENTED. JELLO PROVIDED PER REQUEST. NO FURTHER NEEDS. WHITE BOARD UPDATED. CALL LIGHT IN REACH.
[2023-10-12 20:48] VITALS: BP 141/73
[2023-10-12] MEDS ORDERED: MELATONIN 3 MG TAB PO PRN (21:00)
--- NOTE | 2023-10-12 21:00 | NUR ---
PATIENT CALLED STATING HAD ANOTHER BM. IN TO ROOM. FLUSHED BM NOTICED LOOSE AND NO RED COLOR OR BLOOD. PATIENT STATED NO BLOOD THIS TIME BUT HAD EARLIER. V/S AND I&O'S OBTAINED. FRESH ICE WATER REFILLED. PATIENT IN TO THE BATHROOM AGAIN AND STATED I CAN GO BY MY SELF. PATIENT IS INDEPENDENT IN THE ROOM.
--- NOTE | 2023-10-12 21:48 | NUR ---
EVENING ASSESSMENT COMPLETE. SCHEDULED MEDS ADMIN PER EMAR. PT REPORTS MILD RIGHT SIDE ABD PAIN. DENIES PRN FOR PAIN WHEN OFFERED. WARM COMPRESS PROVIDED. DENIES NAUSEA. BOWEL TONES ACTIVE. ABD SOFT. PT REPORTS FREQUENT LIQUID GREEN BM. NO BLOOD NOTED AT THIS TIME. PT SELF CATH FOR 300 ML YELLOW URINE. PT DENIES QUESTIONS OR CONCERNS. CALL LIGHT IN REACH.
--- NOTE | 2023-10-12 23:45 | NUR ---
IV PUMP ALARMING. NEW BAG IVF INFUSING PER ORDER. FRESH WATER PROVIDED. NO FURTHER NEEDS.
[2023-10-13 01:55] VITALS: BP 126/79
--- NOTE | 2023-10-13 02:44 | NUR ---
VS AND I&O OBTAINED. PT REPORTS FEELING MUCH IMPROVED AFTER SOME REST. REPORTS DECREASE IN LIQUID BM. NO C/O PAIN OR NAUSEA. ASSESSMENT COMPLETE. NO NEEDS AT THIS TIME. CALL LIGHT IN REACH.
--- NOTE | 2023-10-13 04:09 | NUR ---
PT UP TO BR TO SELF CATH AND HAVE BM. CHELSEY RED BLOOD NOTED IN TOILET. PT REPORTS FEELING "CLAMMY" AFTER BM. DENIES FEELING DIZZY OR LIGHTHEADED. HR LOW 100'S. SpO2 93%. INSTRUCTED PT TO CALL FOR ASSISTANCE WHEN OOB. PT VERBALIZES UNDERSTANDING. PT DENIES PAIN OR NAUSEA. NO FURTHER NEEDS.
[2023-10-13 05:24] VITALS: BP 142/73
[2023-10-13 05:31] LABS: BASOPHILS 0.9 % (0-2); EOSINOPHILS 1.3 % (0-6); HEMATOCRIT 39.2 % (35.0-50.0); HEMOGLOBIN 12.9 g/dL (12.0-18.0); LYMPHOCYTES 13.2 % (24-44); MCH 30.5 (27-36); MCV 92.3 fl (81-99); MONOCYTES 11.4 % (0-12); NEUTROPHILS 73.2 % (39-80); PLATELET COUNT 444 K/uL (140-440); RBC 4.25 M/ul (4.3-5.7); RDW 15.2 (10.5-15.0)
[2023-10-13 05:35] LABS: ANION GAP 16.3 (7-21); BUN/CREATININE RATIO 9.09 (6.0-28.6); CALCIUM 8.2 mg/dL (8.5-10.1); CREATININE, SERUM 0.88 mg/dL (0.70-1.30); POTASSIUM 3.3 mmol/L (3.5-5.1)
--- NOTE | 2023-10-13 06:11 | NUR ---
CALL LIGHT ANSWERED. PT UP TO BR TO PASS SMALL AMOUNT BLOOD CLOT PER RECTUM. GAIT STEADY. PT REPORTS SLIGHT LIGHTHEADEDNESS UPON GETTING OUT OF BED. BACK TO BED, LOCO WELL. REPORTS ABD PAIN "UNCOMFORTABLE" DENIES NAUSEA. VS AND I&O OBTAINED, WNL. IV ABX INFUSING PER ORDER. WATER AND APPLE JUICE PROVIDED. NO FURTHER NEEDS.
--- NOTE | 2023-10-13 07:13 | NUR ---
Pt report received from MICHEAL Miguel. Pt is awake in bed, states he just toileted and that there is stool and urine to be emptied. Pt also asks about his home med, metoprolol. I advised the pt that I will speak with Dr. Jain and remind him that the pt is requesting to start it here. Board updated.
--- NOTE | 2023-10-13 08:01 | NUR ---
SPOKE WITH DR. WONG ABOUT THE PT'S REQUEST TO RESTART HIS HOME METOPROLOL. DR. WONG GAVE A VERBAL ORDER TO START METOPROLOL 50MG PO DAILY TO START AT 0900.
[2023-10-13] MEDS ORDERED: L. RHAMNOSUS GG/INULIN CAPSULE PO SCH (08:30)
[2023-10-13] MEDS ORDERED: METOPROLOL SUCCINATE 50 MG TABCR PO SCH (09:00)
[2023-10-13] MEDS ORDERED: VANCOMYCIN HCL 125 MG CAP PO SCH (09:00)
[2023-10-13 09:31] VITALS: BP 151/79
[2023-10-13] MEDS ORDERED: PHARMACY RENAL DOSE ADJUSTMENT 1 DOSE MISC PO SCH (12:00)
[2023-10-13 13:51] VITALS: BP 144/66
--- NOTE | 2023-10-13 14:17 | NUR ---
Patient in bed. Eyes closed, respirations even and unlabored. Will return to complete assessment at a later time.
--- NOTE | 2023-10-13 14:40 | NUR ---
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 VISITOR WAS SHOWN TO THE PT'S ROOM AND REQUESTED TO DON GLOVES AND MASK WHILE VISITING, AND HIS SUPPLIES WERE LEFT WITH HIM IN HIS ROOM.
--- NOTE | 2023-10-13 14:58 | NUR ---
UR CLINICAL REVIEW: 2 MN FOR [employer] MEDICARE OBS 10/12/23 @ 1330 ORDER MATCHES REG PATIENT MEET INPT CRITERIA PER 2 MN FOR [employer], MESSAGE SENT TO MD TO NOTIFY. DISCHARGE TO HOME WHEN STABLE.
[2023-10-13 15:02] LABS: C. DIFF TOXIN B GENE TCDB,PCR Detected (())
--- NOTE | 2023-10-13 15:45 | NUR ---
PATIENT ALERT AND ORIENTED, SITTING UP IN BED. STATES HE LIVES ALONE IN HIS HOUSE. 13 STEPS TO GET TO BASEMENT. STATES HE WALKS THOSE STAIRS WITHOUT ANY ISSUES. VERIFIED DEMOGRAPHICS WITH PATIENT. STATES HE HAS NO DME. HE REMAINS ABLE TO DRIVE WITHOUT ISSUES. DENIES ANY FINANCIAL ISSUES AT THIS TIME. STATES HE IS CONCERNED ABOUT BED AND BATHROOM GETTING CLEANED AT HOME, BUT STATES IF HE FEELS GOOD HE DOES TODAY, IT WON'T BE AN ISSUE. HIS COUSIN, KELLY CARDOZO, AND HIS NEIGHBOR ARE AVAILABLE IF HE NEEDS ASSISTANCE. PATIENT STATES HE HAS A POOR MEMORY AND REQUESTS DC INSTRUCTIONS BE WRITTEN CLEARLY. PATIENT STATES HE WAS SEEN BY DR. SANDRA, PCP, THE FRIDAY AFTER HIS PREVIOUS ADMISSION. SEE READMISSION ASSESSMENT FOR FURHTER INFORMATION.
[2023-10-13 17:57] VITALS: BP 147/65
--- NOTE | 2023-10-13 19:40 | NUR ---
REPORT RECEIVED FROM DAY SHIFT RN. PT LYING IN BED ALERT AND ORIENTED. PT REPORTS PASSING BLOOD WITH LAST LIQUID BM. NO NEEDS AT THIS TIME. WHITE BOARD UPDATED. CALL LIGHT IN REACH.
[2023-10-13 20:53] VITALS: BP 150/78
--- NOTE | 2023-10-13 21:00 | NUR ---
CALL LIGHT ANSWERED. PT UP TO BR TO PASS BRIGHT RED BLOOD PER RECTUM. PT UNSURE IF HE HAD A BOWEL MOVEMENT OR NOT. PT STRAIGHT CATH FOR 900 ML YELLOW URINE. VS OBTAINED, WNL. PT DENIES DIZZINESS OR FEELING LIGHTHEADED. VS OBTAINED, WNL. PT DENIES FURTHER NEEDS. CALL LIGHT IN REACH.
[2023-10-13] MEDS ORDERED: ACETAMINOPHEN 500 MG TAB PO PRN (21:15)
--- NOTE | 2023-10-13 21:18 | NUR ---
PLACED CALL TO MD WITH CONCERNS OF INCREASED BLOOD IN STOOL WITH NOTED CLOTS IN TOILET, AND POTASSIUM LEVEL. RECEIVED VERBAL ORDER FOR POTASSIUM REPLACEMENT-SEE EMAR AND AM LABS TO BE ORDERED. ALL VERBAL ORDERS VERIFIED USING THE REPEAT BACK METHOD.
[2023-10-13] MEDS ORDERED: POTASSIUM CHLORIDE 10 MEQ TABCR PO ONE (21:30)
--- NOTE | 2023-10-13 21:59 | NUR ---
EVENING ASSESSMENT COMPLETE. SCHEDULED MEDS ADMIN PER EMAR. NIO PLACED FOR 4/10 LOWER RIGHT ABD PAIN. BOWEL TONES ACTIVE. ABD SLIGHTLY DISTENDED AND SOFT. UP TO BSC WITH SBA TO PASS APPROX 40 ML JELLY LIKE BLOOD PER RECTUM. PT DENIES FEELING LIGHTHEADED OR DIZZY. NO FURTHER NEEDS AT THIS TIME. CALL LIGHT IN REACH.
--- NOTE | 2023-10-13 23:46 | NUR ---
PT RESTING IN BED WITH EYES CLOSED. RESPIRATIONS EVEN. CALL LIGHT IN REACH.
--- NOTE | 2023-10-14 00:05 | NUR ---
CALL LIGHT ANSWERED. PT UP TO BR WITH SBA TO SELF CATH AND PASS APPROX 50 ML JELLY LIKE BLOOD PER RECTUM. GAIT STEADY. BACK TO BED. NO FURTHER NEEDS. CALL LIGHT IN REACH.
--- NOTE | 2023-10-14 02:21 | NUR ---
NEW BAG IVF INFUSING PER ORDER. PT REPORTS FEELING "CLAMMY" LINENS AND GOWN CHANGED. PT DENIES PAIN. REPORTS HE HAS BEEN RESTING WELL. NO FURTHER NEEDS.
--- NOTE | 2023-10-14 03:29 | NUR ---
PT UP TO BR TO SELF CATH AND HAVE SMALL JELLY LIKE DARK GREEN BM. SMALL AMOUNT CHELSEY RED BLOOD NOTED WELL. BACK TO BED. DENIES PAIN OR NAUSEA. NO FURTHER NEEDS.
--- NOTE | 2023-10-14 05:30 | NUR ---
PT UP TO BR WITH SBA TO SELF CATH AND HAVE SM JELLY LIKE DARK GREEN BM WITH CHELSEY RED BLOOD. BACK TO BED, LOCO WELL. VS AND I&O OBTAINED. NO FURTHER NEEDS AT THIS TIME.
[2023-10-14 05:36] VITALS: BP 136/69
[2023-10-14 05:36] LABS: EOSINOPHILS 4.6 % (0-6); HEMATOCRIT 36.6 % (35.0-50.0); LYMPHOCYTES 23.3 % (24-44); MCH 30.4 (27-36); MCHC 32.9 g/dl (30-36); MCV 92.4 fl (81-99); MONOCYTES 15.6 % (0-12); NEUTROPHILS 55.5 % (39-80); PLATELET COUNT 392 K/uL (140-440); RBC 3.96 M/ul (4.3-5.7); RDW 14.7 (10.5-15.0)
[2023-10-14 05:45] LABS: ANION GAP 12.2 (7-21); BUN/CREATININE RATIO 5.19 (6.0-28.6); CALCIUM 7.9 mg/dL (8.5-10.1); CREATININE, SERUM 0.77 mg/dL (0.70-1.30); MAGNESIUM 1.7 mg/dL (1.8-2.4); POTASSIUM 3.2 mmol/L (3.5-5.1)
--- NOTE | 2023-10-14 07:18 | NUR ---
Pt report received from MICHEAL Bedolla. Pt is using the BSC at this time.
--- NOTE | 2023-10-14 08:29 | NUR ---
PATIENT IN BED AT THIS TIME. FRESH WATER GIVEN. CALL LIGHT WITHIN REACH, NO FURTHER NEEDS AT THIS TIME.
--- NOTE | 2023-10-14 09:33 | NUR ---
UR CLINICAL REVIEW: 2 MN FOR [employer] MEDICARE INPT 10/13/23 @ 1456 NO AUTH REQUIRED. DISCHARGE TO HOME WHEN STABLE.
[2023-10-14 09:40] VITALS: BP 156/80
[2023-10-14] MEDS ORDERED: MAGNESIUM SULFATE 4 GM/100 ML BAG IV ONE (13:15)
--- NOTE | 2023-10-14 13:20 | NUR ---
PATIENT IN BED AT THIS TIME. CALL LIGHT IN REACH, NO FURTHER NEEDS AT THIS TIME.
[2023-10-14] MEDS ORDERED: POTASSIUM CHLORIDE 10 MEQ TABCR PO SCH (14:00)
[2023-10-14 14:13] VITALS: BP 156/89
--- NOTE | 2023-10-14 14:20 | NUR ---
Spoke with Josue. He states he is feeling better. Plan for dc to home when cleared medically. He states his sister is on her way to stay with him until he is feeling better. No needs for dc.
[2023-10-14 18:01] VITALS: BP 138/74
--- NOTE | 2023-10-14 18:23 | NUR ---
PATIENT IN BED AT THIS TIME. VITALS AND I&O'S CHARTED. CALL LIGHT WITHIN REACH, NO FURTHER NEEDS AT THIS TIME.
--- NOTE | 2023-10-14 19:22 | NUR ---
REPORT RECEIVED FROM DAY SHIFT RN. PT LYING IN BED ALERT AND ORIENTED. DENIES NEEDS. WHITE BOARD UPDATED. CALL LIGHT IN REACH.
[2023-10-14 21:46] VITALS: BP 144/70
--- NOTE | 2023-10-14 22:08 | NUR ---
EVENING ASSESSMENT COMPLETE. SCHEDULED MEDS ADMIN PER EMAR. IV ABX INFUSING PER ORDER. PT DENIES PAIN OR NAUSEA. BOWEL TONES ACTIVE. ABD SOFT AND SLIGHTLY DISTENDED. VS AND I&O OBTAINED, WNL. PT DENIES QUESTIONS OR CONCERNS. CALL LIGHT IN REACH.
--- NOTE | 2023-10-15 01:07 | NUR ---
PT LYING IN BED RESTING WITH EYES CLOSED. RESPIRATIONS EVEN. CALL LIGHT IN REACH.
--- NOTE | 2023-10-15 02:45 | NUR ---
PT UP TO SELF CATH AND HAVE MEDIUM AMOUNT OF JELLY LIKE DARK GREEN BM WITH CHELSEY RED BLOOD. BACK TO BED, LOCO WELL. DENIES PAIN OR NAUSEA. REPORTS HE HAS BEEN RESTING WELL. ICE WATER PROVIDED. NO FURTHER NEEDS.
--- NOTE | 2023-10-15 03:35 | NUR ---
PT UP TO BR TO PASS SMALL AMOUNT JELLY LIKE BLOOD PER RECTUM. BACK TO BED. NO FURTHER NEEDS.
[2023-10-15 05:36] VITALS: BP 135/73
[2023-10-15 05:43] LABS: BASOPHILS 0.9 % (0-2); EOSINOPHILS 4.6 % (0-6); HEMATOCRIT 37.1 % (35.0-50.0); HEMOGLOBIN 12.4 g/dL (12.0-18.0); LYMPHOCYTES 22.1 % (24-44); MCH 30.5 (27-36); MCHC 33.4 g/dl (30-36); MCV 91.4 fl (81-99); MONOCYTES 11.7 % (0-12); NEUTROPHILS 60.7 % (39-80); PLATELET COUNT 393 K/uL (140-440); RBC 4.06 M/ul (4.3-5.7); RDW 15.1 (10.5-15.0)
[2023-10-15 06:00] LABS: ANION GAP 12.7 (7-21); BUN/CREATININE RATIO 2.77 (6.0-28.6); CALCIUM 7.9 mg/dL (8.5-10.1); CREATININE, SERUM 0.72 mg/dL (0.70-1.30); POTASSIUM 3.7 mmol/L (3.5-5.1)
--- NOTE | 2023-10-15 06:00 | NUR ---
PT UP TO BR TO SELF CATH AND HAVE MEDIUM DARK GREEN JELLY LIKE BM. BACK TO BED. VS AND I&O OBTAINED. PT DENIES PAIN OR NAUSEA. IV ABX INFUSING PER ORDER. NEW BAG IVF INFUSING WNL. PT DENIES FURTHER NEEDS. CALL LIGHT IN REACH.
--- NOTE | 2023-10-15 07:37 | NUR ---
REPORT RECIEVED FROM MICHEAL LANDIN
--- NOTE | 2023-10-15 09:04 | NUR ---
PT SITTING UPRIGHT IN BED EATING HIS CLEAR LIQ TRAY. PT DENIES PAIN. WASHED RECENT BM THAT AT FIRST APPEARED TO BE BLOOD DOWN THE TOILET BUT ONCE IN WATER DID NOT HAVE A HINT OF PINK TO IT. ADMINISTERED MORNING MEDS. VS STABLE. AFEBRILE. HR REGULAR.
--- NOTE | 2023-10-15 09:10 | NUR ---
PATIENT IS UP IN THE BATHROOM WITH NURSING STAFF. THE VETERINARY SCIENCE TEACHER WILL RETURN LATER TODAY TO DISCUSS THE DISCHARGE PLAN.
[2023-10-15 09:27] VITALS: BP 160/75
--- NOTE | 2023-10-15 10:49 | NUR ---
SPOKE TO PATIENT ABOUT THE DISCHARGE PLAN.PATIENT HAS NO ISSUES THAT THE AIR BATTLE MANAGER NEEDS TO ADDRESS AT THIS TIME. PATIENT PLANS TO DC TO HOME WHEN MEDICALLY STABLE.
--- NOTE | 2023-10-15 11:10 | NUR ---
ROUNDED ON PT. UP TO RESTROOM AND DENIES NEEDS OR CONCERNS ATT.
--- NOTE | 2023-10-15 11:25 | NUR ---
PT HAS VISITOR IN ROOM BRINGING HIM STRAIGHT CATH SUPPLIES.
--- NOTE | 2023-10-15 13:20 | NUR ---
REPORT RECEIVED FROM LISANDRA BURTON, ALL QUESTIONS ANSWERED.
[2023-10-15 13:29] VITALS: BP 143/65
--- NOTE | 2023-10-15 13:37 | NUR ---
ADMINISTERED SCHEDULED MEDS. PT CONCERNED WITH HOW FREQ HE IS HAVING TO SELF CATH WITH ALL THE FLUIDS HE IS RECIEVING.
--- NOTE | 2023-10-15 13:44 | NUR ---
ADMINISTERED MEDS. PT GIVEN ICE.
[2023-10-15 18:13] VITALS: BP 142/67
--- NOTE | 2023-10-15 20:04 | NUR ---
@1915 REC REPORT FROM RN JAROD AND STUDENT NURSE DALLAS. NO NEEDS FROM PT AT THIS TIME
--- NOTE | 2023-10-15 20:23 | NUR ---
CHECKED ON PT, REQUESTED AND RECEIVED FRESH ICE WATER. POC REVIEWED WITH PT, EMPTIED GARBAGE, RECORDED URINE, REMOVED DINNER TRAY. NO OTHER NEEDS AT THIS TIME.
[2023-10-15 21:18] VITALS: BP 137/79
--- NOTE | 2023-10-15 21:24 | NUR ---
DATA REVIEWER DONNED PPE AND ENTERED ROOM AND OBTAINED VITALS AND I&O. PT STATES NO FURTHER NEEDS AT THIS TIME. CALL LIGHT WITHIN REACH.
--- NOTE | 2023-10-15 22:10 | NUR ---
ASSESSMENT COMPLETE. HS MEDICATIONS ADMINISTERED PER MAR. PT DENIES PAIN, DENIES PAIN WHEN PALPATING ABD. CONTINUES TO SELF CATH, MOST RECENT URINE OF 600 IN HAT IN TOILET. A/O, DENIES HAVING BM RECENTLY, WILL CALL IF HE HAS ONE;
--- NOTE | 2023-10-15 22:30 | NUR ---
x completed, sl. Pt with no needs at this time.
--- NOTE | 2023-10-16 01:09 | NUR ---
CALL LIGHT ANSWERED. PT HAD USED BR. OUTPUT NOTED, PT HAD SMALL BM REFRACTORY REPAIRER NOTED NO BLOOD. PT STATES NO FURTHER NEEDS AT THIS TIME. CALL LIGHT WITHIN REACH.
[2023-10-16 05:45] LABS: BASOPHILS 1.2 % (0-2); EOSINOPHILS 4.5 % (0-6); HEMATOCRIT 37.8 % (35.0-50.0); HEMOGLOBIN 12.7 g/dL (12.0-18.0); LYMPHOCYTES 29.3 % (24-44); MCHC 33.5 g/dl (30-36); MCV 92.5 fl (81-99); MONOCYTES 13.2 % (0-12); NEUTROPHILS 51.8 % (39-80); PLATELET COUNT 391 K/uL (140-440); RBC 4.09 M/ul (4.3-5.7)
[2023-10-16 05:56] LABS: ANION GAP 13.6 (7-21); BUN/CREATININE RATIO 4.1 (6.0-28.6); CALCIUM 8.4 mg/dL (8.5-10.1); CREATININE, SERUM 0.73 mg/dL (0.70-1.30); MAGNESIUM 1.7 mg/dL (1.8-2.4); POTASSIUM 3.6 mmol/L (3.5-5.1)
[2023-10-16 06:12] VITALS: BP 127/67
--- NOTE | 2023-10-16 06:42 | NUR ---
PT ON R/A, INDEPENDENT IN ROOM, SELF CATHS, WILL CALL TO REPORT. BM'S ARE HOLDING SHAPE, VERY SOFT, DARK, ONCE IN TOILET, THEY APPEAR OILY, SLIM LIKE. PT DENIES PAIN; THIS AM STATES HE FEELS MUCH BETTER. CONTINUES ON ISOLATION FOR CDIFF.
--- NOTE | 2023-10-16 07:25 | NUR ---
REPORT RECEIVED FROM COY BURTON, ALL QUESTIONS ANSWERED. PT AWAKE IN BED, DENIES NEEDS AT THIS TIME. CALL LIGHT IN REACH.
--- NOTE | 2023-10-16 08:05 | NUR ---
PATIENT IN BED AT THIS TIME. SUPERVISOR MIRROR FABRICATION ASSISTED PATIENT TO THE RESTROOM AND CHARTED PATIENTS VOIDINGS. CALL LIGHT WITHIN REACH, NO FURTHER NEEDS AT THIS TIME.
--- NOTE | 2023-10-16 09:22 | NUR ---
PT UPDATED ON PLAN FOR DISCHARGE. PROVIDED EDUCATION ON C DIFF. PT VERBALIZED UNDERSTANDING.
[2023-10-16] MEDS ORDERED: MAGNESIUM SULFATE 4 GM/100 ML BAG IV ONE (09:45)
[2023-10-16] MEDS ORDERED: VANCOMYCIN HCL125 MG PO (09:49)
[2023-10-16 09:50] VITALS: BP 167/73
[2023-10-16] MEDS ORDERED: CEPHALEXIN500 MG PO (09:50)
[2023-10-16] MEDS ORDERED: CULTURELLE1 EAC1 PO (09:51)
[2023-10-16 09:53] VITALS: BP 158/76
--- NOTE | 2023-10-16 10:10 | NUR ---
PATIENT HAS BEEN DISCHARGE TO HOME TO FOLLOW-UP WITH PCP.
--- NOTE | 2023-10-16 10:46 | NUR ---
PATIENT IN BED AT THIS TIME. PATIENT CALLED SUPERVISOR BLOOMING MILL SAYING THAT HE HAD A BOWEL MOVEMENT AND HAD VOIDED URINE. FRESH WATER WITH ICE ALSO PROVDIDED BY SUPERVISOR BLOOMING MILL. CALL LIGHT WITHIN REACH, NO FURTHER NEEDS AT THIS TIME.
[2023-10-16 13:51] VITALS: BP 161/78
--- NOTE | 2023-10-16 14:30 | NUR ---
PT AND PT SISTER GIVEN EXTENSIVE INSTRUCTIONS REGARDING CONTACT PRECAUTIONS IN THE HOME AND MEDICATION ADHERENCE. PT AND SISTER VERBALIZED UNDERSTANDING OF DISCHARGE INSTRUCTIONS WITH NO FURTHER QUESTIONS.
== END 2023-10-16 14:54 | disposition home or self-care (01) | DRG 372 ==
LOC: ED 09:42 → MS 13:30
PROVIDERS: Emergency Medicine; ADMIT Internal Medicine; ATTEND Internal Medicine
DX: A04.72 Enterocolitis due to Clostridium difficile, not specified as recurrent (principal); E87.3 Alkalosis; I47.10 Supraventricular tachycardia, unspecified; N39.0 Urinary tract infection, site not specified; D72.829 Elevated white blood cell count, unspecified; E86.0 Dehydration; Z66 Do not resuscitate; J44.9 Chronic obstructive pulmonary disease, unspecified; F17.210 Nicotine dependence, cigarettes, uncomplicated; Z98.890 Other specified postprocedural states; Z79.899 Other long term (current) drug therapy; F12.90 Cannabis use, unspecified, uncomplicated
CPT/HCPCS: 36415; 36600; 71045; 74177; 80048; 80053; 81001; 82803; 83605; 83735; 83880; 84484; 85025; 86850; 86900; 86901; 87045; 87046; 87088; 87493; A9270; J0696; J3475; J7030; J7121; Q9967

== ENCOUNTER 2023-12-18 13:55 | Emergency (ER) | payer MEDICARE ==
[~2023-12-18] VITALS: Ht 185.4 cm; Wt 64.3 kg
--- NOTE | ~2023-12-18 | EKG ---
[facility] [address] [facility] [place], [place] [address] Draft EK completed, results pending confirmation PATIENT NAME: IGNACIACONCETTA Electrocardiogram DATE OF : 50 PHYSICIAN: PRELIMINARY REPORT #: [id number] REPORT IS CONFIDENTIAL AND NOT TO BE RELEASED WITHOUT AUTHORIZATION
[~2023-12-18 13:55] MED LIST changes: +CEPHALEXIN500 MG PO; +CULTURELLE1 EAC1 PO; +VANCOMYCIN HCL125 MG PO
[2023-12-18 14:38] LABS: BILIRUBIN, URINE NEGATIVE (negative); BLOOD/HGB, URINE LARGE (Negative); KETONE, URINE SMALL (Negative); LEUK ESTERASE, URINE SMALL (negative); NITRITE, URINE POSITIVE (negative)
[2023-12-18 14:48] LABS: BACTERIA, URINE 2+ /hpf (negative); CASTS, URINE NONE SEEN \\lpf; COLLECTION TYPE, URINE CLEAN CATCH; CRYSTALS, URINE NONE SEEN (0-1+); EPITHELIAL CELLS, URINE SQUAMOUS 1+ /lpf (0-1+); REFLEX CULTURE, URINE Yes (No); WHITE BLOOD CELLS, URINE 21-40 /HPF (0-5)
[2023-12-18] MEDS ORDERED: SODIUM CHLORIDE 0.9% 1,000 ML IV PRN (15:00)
[2023-12-18] MEDS ORDERED: TRIMETHOPRIM/SULFAMETHOXAZOLE 1 EA TAB PO ONE (15:00)
[2023-12-18] MEDS ORDERED: CEFTRIAXONE/SODIUM CHLORIDE 1 GM/100 ML PIGGYBACK IV ONE (15:00)
[2023-12-18 15:13] LABS: BASOPHILS 0.2 % (0-2); EOSINOPHILS 0.1 % (0-6); HEMATOCRIT 41.6 % (35.0-50.0); HEMOGLOBIN 14.2 g/dL (12.0-18.0); LYMPHOCYTES 6.3 % (24-44); MCHC 34.1 g/dl (30-36); MCV 90.9 fl (81-99); MONOCYTES 1.7 % (0-12); NEUTROPHILS 91.7 % (39-80); PLATELET COUNT 322 K/uL (140-440); RBC 4.58 M/ul (4.3-5.7); RDW 14.2 (10.5-15.0)
[2023-12-18 15:29] LABS: ALBUMIN 3.5 g/dL (3.4-5.0); ALBUMIN/GLOBULIN RATIO 0.88 (1.1-2.4); ANION GAP 16.5 (7-21); BILIRUBIN, TOTAL 1.5 ng/dL (0.2-1.0); BUN/CREATININE RATIO 20.45 (6.0-28.6); CALCIUM 8.8 mg/dL (8.5-10.1); CREATININE, SERUM 0.88 mg/dL (0.70-1.30); POTASSIUM 3.5 mmol/L (3.5-5.1); PROTEIN, TOTAL 7.5 g/dL (6.4-8.2)
[2023-12-18] MEDS ORDERED: BACTRIM DS TAB1 EACH PO (16:27)
[2023-12-18 16:35] VITALS: BP 148/81
== END 2023-12-18 16:35 | disposition home or self-care (01) ==
LOC: ED 13:55
PROVIDERS: Emergency Medicine
DX: N39.0 Urinary tract infection, site not specified (principal); E87.1 Hypo-osmolality and hyponatremia; Z79.899 Other long term (current) drug therapy; F17.200 Nicotine dependence, unspecified, uncomplicated
CPT/HCPCS: 36415; 80053; 81001; 83605; 85025; 93005; 93010; 96365; 99283-25; J0696; J7030

== ENCOUNTER 2024-07-13 07:20 | Day surgery (SDC) | payer MEDICARE ==
[2024-07-06 16:10] VITALS: BP 152/73
[~2024-07-13] VITALS: Ht 185.4 cm; Wt 70.5 kg
[~2024-07-13 07:20] MED LIST changes: +BACTRIM DS TAB1 EACH PO; +COZAAR50 MG PO; +IBLOOD GLUCOSE TEST STRIP 1 EA TEST VI PRN; +LACTATED RINGER'S 1,000 ML IV SCH; +LIDOCAINE HCL 1% 5 ML SDV INJ ONE; +LIPITOR20 MG; +OSTERA TABLET1 EACH PO
[2024-07-13 07:32] VITALS: BP 144/65
--- NOTE | 2024-07-13 07:49 | NUR ---
PT NOT AVAILABLE FOR VISIT. PROVIDED PRAYER.
[2024-07-13 07:55] LABS: BASOPHILS 0.6 % (0-2); EOSINOPHILS 2.8 % (0-6); HEMATOCRIT 42.9 % (35.0-50.0); HEMOGLOBIN 14.7 g/dL (12.0-18.0); LYMPHOCYTES 28.5 % (24-44); MCHC 34.2 g/dl (30-36); MCV 90.6 fl (81-99); MONOCYTES 11.5 % (0-12); NEUTROPHILS 56.6 % (39-80); PLATELET COUNT 386 K/uL (140-440); RBC 4.74 M/ul (4.3-5.7)
[2024-07-13 08:13] LABS: ALBUMIN 3.5 g/dL (3.4-5.0); ALBUMIN/GLOBULIN RATIO 0.85 (1.1-2.4); ANION GAP 16.3 (7-21); BILIRUBIN, TOTAL 0.6 mg/dL (0.2-1.0); BUN/CREATININE RATIO 17.85 (6.0-28.6); CALCIUM 8.9 mg/dL (8.5-10.1); CREATININE, SERUM 0.84 mg/dL (0.70-1.30); POTASSIUM 4.3 mmol/L (3.5-5.1); PROTEIN, TOTAL 7.6 g/dL (6.4-8.2)
[2024-07-13] MEDS ORDERED: CIPROFLOXACIN 0.3% 5 ML HOME.PACK ONE (08:13)
[2024-07-13] MEDS ORDERED: propofoL 200 MG/20 ML VIAL ONE (08:45)
[2024-07-13] MEDS ORDERED: fentaNYL citrate 100 MCG/2 ML VIAL ONE (08:45)
[2024-07-13] MEDS ORDERED: ondansetron HCL 4 MG/2 ML VIAL ONE (08:45)
[2024-07-13] MEDS ORDERED: LIDOCAINE HCL 2% 5 ML SDV ONE (08:45)
[2024-07-13] MEDS ORDERED: DEXAMETHASONE SOD PHOS 4 MG/ML VIAL ONE (08:45)
[2024-07-13] MEDS ORDERED: dexmedeTOMIDine HCl 200 MCG/2 ML VIAL ONE (08:46)
--- NOTE | 2024-07-13 09:49 | NUR ---
07/13/24 0949 Disha Hall 0933 PT ARRIVED IN PACU SLEEPY WITH COTTON BALL IN L EAR. 0940 OXYGEN REMOVED. PT AWAKENS TO VERBAL STIMULI, THEN FALLS BACK TO SLEEP. 0949 RESTING. REU.
[2024-07-13 10:00] VITALS: BP 131/61
--- NOTE | 2024-07-13 10:06 | NUR ---
Patient returns to room 3 from PACU. Report received from MICHEAL Mcfadden. Patient is doing well and seems to have returned to his baseline cognition. He is sipping on water. Vital signs obtained and WDL. patient has cotton ball to left ear. He denies any pain or nausea. I reviewed with him the expectation for the next hour and he expressed understanding. Pudding provided. He denies any other needs at this time. call light within reach, bed in lowest position.
[2024-07-13 11:01] VITALS: BP 141/701
--- NOTE | 2024-07-13 11:03 | NUR ---
Hourly rounding on patient. Patient has met all discharge requirements at this time. He has neurogenic bladder and self cath's, so I did not make it a requirement for patient to void prior to discharge. He did self cath just propr to going back to the OR. Patient has ambulated and drank and ate without difficulty and has expressed the desire to go home. Vital signs were obtained. he still denies pain. IV removed from right forearm. Discharge instructions were reviewed in detail and he expressed understanding. Patient was discharged via wheelchair where his cousin Sally is to take him home
--- NOTE | 2024-07-13 11:37 | OR ---
[facility] [address] [facility] [place] [address] Signed DATE OF OPERATION: 07/13/2024 SURGEON: Moiz Agustin MD PREOPERATIVE DIAGNOSIS: Left eardrum perforation. POSTOPERATIVE DIAGNOSIS: Left eardrum perforation. PROCEDURE: Left paper patch myringoplasty. ANESTHESIA: General LMA; CATERING AND EVENTS MANAGER, David. PREOPERATIVE HISTORY: Mr. Beth is a 74-year-old man with a chronic left ear eardrum perforation not certain when this occurred, but it has not healed with appropriate observation. No drainage. No signs of infection. He is taken to the operating room for the above-mentioned procedures. OPERATIVE PROCEDURE AND FINDINGS: After informed consent, the patient was taken to the operating room, placed in supine position where general LMA anesthesia was induced. The patient and procedure were verified. Head was turned to the right. Left ear was examined with the operating microscope. There was a dry perforation encompassing about 25%-30% of the eardrum, mainly anterior location on the eardrum. Middle ear mucosa appeared healthy. Concentrated phenol on a cotton ball was applied to the eardrum edges. A good nia was obtained. Paper patch was trimmed, placed on the perforation site with good closure. Cotton balls applied to the meatus. The patient tolerated the procedure well, was awakened, extubated, transported to recovery room in good condition. No complications. BLOOD LOSS: Minimal. SPECIMENS: None. Electronically Signed By: MOIZ AGUSTIN MD 07/13/24 1137 PATIENT NAME: CONCETTA BETH OPERATIVE REPORT DATE OF : 50 REPORT #: [id number] PHYSICIAN: MOIZ AGUSTIN MD PCP: ARTI SANDRA MD REPORT IS CONFIDENTIAL AND NOT TO BE RELEASED WITHOUT AUTHORIZATION [address] [place], [place] [address] Signed DRAINS: None. Moiz Agustin MD GC/MODL /[id number] Copies: ~ Electronically Signed By: MOIZ AGUSTIN MD 07/13/24 1137 PATIENT NAME: CONCETTA BETH OPERATIVE REPORT DATE OF : 50 REPORT #: [id number] PHYSICIAN: MOIZ AGUSTIN MD PCP: ARTI SANDRA MD REPORT IS CONFIDENTIAL AND NOT TO BE RELEASED WITHOUT AUTHORIZATION
[2024-07-13] MEDS ORDERED: SEVOFLURANE 250 ML BTL INH ONE (15:02)
--- NOTE | 2024-07-14 19:44 | EKG ---
[facility] [address] [place] [address] Signed Sinus rhythm with premature atrial complexes Otherwise normal ECG When compared with ECG of 18-DEC-2023 15:34, premature atrial complexes are now present Confirmed by Gomez Jones MD ([id number]) on 07/14/2024 7:44:35 PM Electronically Signed By: GOMEZ JONES MD 07/14/241943 PATIENT NAME: IGNACIACONCETTA Electrocardiogram DATE OF : 50 PHYSICIAN: GOMEZ JONES MD REPORT #: [id number] REPORT IS CONFIDENTIAL AND NOT TO BE RELEASED WITHOUT AUTHORIZATION
== END 2024-07-13 11:00 | disposition home or self-care (01) ==
LOC: DS 07:20
PROVIDERS: Nurse Anesthetist, Certified Registered; ATTEND Otolaryngology
PROC: 09U87JZ Supplement Left Tympanic Membrane with Synthetic Substitute, Via Natural or Artificial Opening (ICD-10-PCS; principal; 2024-07-13 09:00)
DX: H72.92 Unspecified perforation of tympanic membrane, left ear (principal)
CPT/HCPCS: 00120; 36415; 80053; 85025; 93005; 93010; J1100; J2003; J2405; J2704; J3010; J7121

== ENCOUNTER 2025-03-22 11:34 | Emergency (ER) | payer MEDICARE ==
[~2025-03-22] VITALS: Ht 185.4 cm; Wt 68.7 kg
[~2025-03-22 11:34] MED LIST changes: -IBLOOD GLUCOSE TEST STRIP 1 EA TEST VI PRN; -LACTATED RINGER'S 1,000 ML IV SCH; -LIDOCAINE HCL 1% 5 ML SDV INJ ONE
[2025-03-22] MEDS ORDERED: FLUTICASONE-SA1 EAC4 INH (11:51)
[2025-03-22] MEDS ORDERED: POLYETHYLENE GL17 GM PO (11:51)
[2025-03-22 11:59] LABS: BASOPHILS 0.5 % (0.2-1.2); EOSINOPHILS 5.1 % (0.8-7.0); LYMPHOCYTES 27.7 % (21.8-53.1); MCH 30.5 PG (25.7-32.2); MCHC 34.4 g/dL (32.3-36.5); MCV 88.5 fL (79.0-92.2); MONOCYTES 11.3 % (5.3-12.2); NEUTROPHILS 54.9 % (34.0-67.9); RBC 4.79 M/uL (4.63-6.08)
[2025-03-22 12:08] LABS: ALT (SGPT) 28.0 U/L (14-59); AST (SGOT) 23.0 U/L (15-37); GLOMERULAR FILTRATION RATE,EST 95.0 mL/min (>60); PROTEIN, TOTAL 7.6 g/dL (6.4-8.2); UREA NITROGEN 12.0 mg/dL (7-18)
[2025-03-22 14:14] VITALS: BP 143/64
== END 2025-03-22 14:10 | disposition home or self-care (01) ==
LOC: ED 11:34
PROVIDERS: Emergency Medicine
DX: K92.2 Gastrointestinal hemorrhage, unspecified (principal); F17.200 Nicotine dependence, unspecified, uncomplicated; Z79.51 Long term (current) use of inhaled steroids; Z79.899 Other long term (current) drug therapy; Z88.1 Allergy status to other antibiotic agents
CPT/HCPCS: 36415; 74177; 80053; 83690; 85025; 99284-25; Q9967